=== PATIENT | male | born 1970 | race Asian ===

== ENCOUNTER 2016-09-15 10:19 | Emergency (ER) | payer SELFPAY ==
[~2016-09-15] VITALS: Ht 175.3 cm; Wt 117.9 kg
[2016-09-15 10:47] VITALS: BP 119/78
[2016-09-15 10:47] LABS: BASOPHILS % (AUTO) 1.6 % (0.0-2.0); EOSINOPHILS % (AUTO) 4.3 % (0.0-3.0); MEAN CORPUSCULAR HEMOGLOBIN 29.5 PG (27.0-31.0); MEAN CORPUSCULAR HGB CONC 32.6 G/DL (32.0-36.0); MEAN CORPUSCULAR VOLUME 90 FL (80-99); MEAN PLATELET VOLUME 6.2 FL (6.5-10.1); MONOCYTES % (AUTO) 5.8 % (1.0-10.0); NEUTROPHILS % (AUTO) 41.4 % (45.0-75.0); PLATELET COUNT 379 K/UL (150-450); RED BLOOD COUNT 5.74 M/UL (4.70-6.10); RED CELL DISTRIBUTION WIDTH 12.8 % (11.6-14.8); WHITE BLOOD COUNT 5.1 K/UL (4.8-10.8)
--- NOTE | 2016-09-15 10:50 | Emergency Room Report ---
History of Present Illness General Chief Complaint: General Complaint Source: Patient Present Illness HPI Patient present with an episode of acute shortness of breath This occurred this morning after eating breakfast Patient reports that he felt like he was having a heart attack [employer] weak Palpitations Denies any headache or visual changes Denies any chest pain at this time denies any back or flank pain Patient has been on multiple supplements He had borderline diabetes which is controlled with his diet Denies any recent travel denies any pleurisy Allergies: Coded Allergies: No Known Allergies (Unverified , 09/15/16) Patient History Past Medical History: see triage record Pertinent Family History: none Reviewed Nursing Documentation: PMH: Agreed, PSxH: Agreed Nursing Documentation-PMH Past Medical History: No Stated History Review of Systems All Other Systems: negative except mentioned in HPI Physical Exam Vital Signs Date Time Temp Pulse Resp B/P Pulse Ox O2 Delivery O2 Flow Rate FiO2 09/15/16 10:27 98.1 106 16 125/70 98 Room Air 09/15/16 10:47 2.0 Sp02 EP Interpretation: reviewed, normal General Appearance: well appearing, no apparent distress Head: normocephalic, atraumatic Eyes: bilateral eye EOMI, bilateral eye PERRL ENT: hearing grossly normal, normal pharynx, TMs + canals normal, uvula midline Neck: full range of motion, supple, no meningismus, no bony tend Respiratory: lungs clear, normal breath sounds, no rhonchi, no respiratory distress, no retraction, no accessory muscle use Cardiovascular #1: normal peripheral pulses, regular rate, rhythm, no edema, no gallop, no JVD, no murmur Gastrointestinal: normal bowel sounds, non tender, soft, no mass, no organomegaly, non-distended, no guarding, no hernia, no pulsatile mass, no rebound Genitourinary: no CVA tenderness Musculoskeletal: normal inspection Neurologic: oriented x3, responsive, 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, motor strength/ tone normal, sensory intact Psychiatric: mood/affect normal Skin: normal color, no rash, warm/dry, palpation normal Lymphatic: normal inspection, no adenopathy Medical Decision Making Diagnostic Impression: Primary Impression: Palpitations Additional Impressions: Weakness Chest pain ER Course Patient is a fairly complex patient with multiple differential to consideration including but not limited to cardiac cardiopulmonary and vascular emergencies Patient's EKG and blood work are appropriate EKG was repeated again which was normal patient remains asymptomatic at this time and is stable for close outpatient followup Labs Test 09/15/16 10:35 09/15/16 11:11 White Blood Count 5.1 K/UL (4.8-10.8) Red Blood Count 5.74 M/UL (4.70-6.10) Hemoglobin 17.0 G/DL (14.2-18.0) Hematocrit 51.9 % (42.0-52.0) Mean Corpuscular Volume 90 FL (80-99) Mean Corpuscular Hemoglobin 29.5 PG (27.0-31.0) Mean Corpuscular Hemoglobin Concent 32.6 G/DL (32.0-36.0) Red Cell Distribution Width 12.8 % (11.6-14.8) Platelet Count 379 K/UL (150-450) Mean Platelet Volume 6.2 FL (6.5-10.1) Neutrophils (%) (Auto) 41.4 % (45.0-75.0) Lymphocytes (%) (Auto) 47.0 % (20.0-45.0) Monocytes (%) (Auto) 5.8 % (1.0-10.0) Eosinophils (%) (Auto) 4.3 % (0.0-3.0) Basophils (%) (Auto) 1.6 % (0.0-2.0) Sodium Level 139 mEQ/L (135-145) Potassium Level 3.4 mEQ/L (3.4-4.9) Chloride Level 98 mEQ/L (98-107) Carbon Dioxide Level 26 mEQ/L (20-30) Anion Gap 15 (5-15) Blood Urea Nitrogen 15 mg/dL (7-23) Creatinine 0.9 mg/dL (0.7-1.2) Estimat Glomerular Filtration Rate > 60 mL/min (>60) Glucose Level 151 mg/dL (74-106) Calcium Level 9.3 mg/dL (8.6-10.2) Total Bilirubin 0.5 mg/dL (0.0-1.2) Aspartate Amino Transf (AST/SGOT) 17 U/L (5-40) Alanine Aminotransferase (ALT/SGPT) 27 U/L (3-41) Alkaline Phosphatase 47 U/L (40-129) Total Creatine Kinase 254 U/L (38-174) Creatine Kinase MB 3.0 ng/mL (< 6.7) Creatine Kinase MB Relative Index 1.1 Troponin I < 0.30 ng/mL (<=0.30) Total Protein 7.0 g/dL (6.6-8.7) Albumin 4.4 g/dL (3.5-5.2) Globulin 2.6 g/dL Albumin/Globulin Ratio 1.6 (1.0-2.7) Lipase 26 U/L (< 60) Urine Opiates Screen Negative (NEGATIVE) Urine Barbiturates Screen Negative (NEGATIVE) Phencyclidine (PCP) Screen Negative (NEGATIVE) Urine Amphetamines Screen Negative (NEGATIVE) Urine Benzodiazepines Screen Negative (NEGATIVE) Urine Cocaine Screen Negative (NEGATIVE) Urine Marijuana (THC) Screen Negative (NEGATIVE) EKG Diagnostic Results Rate: normal Rhythm: NSR ST Segments: no acute changes Rhythm Strip Diag. Results EP Interpretation: yes Rate: 66 Rhythm: NSR, no PVC's, no ectopy Chest X-Ray Diagnostic Results EP Interpretation: Yes Findings: no consolidation, no effusion, no pneumothorax Number of Views: 1 Last Vital Signs Date Time Temp Pulse Resp B/P Pulse Ox O2 Delivery O2 Flow Rate FiO2 09/15/16 10:47 97.6 95 17 119/78 97 Nasal Cannula 2.0 Status: improved Disposition: HOME, SELF-CARE Condition: Improved Additional Instructions: Patient is provided with the discharge instructions notified to follow up with primary doctor in the next 2-3 days otherwise return to the er with any worsening symptoms. Please note that this report is being documented using [employer] technology. This can lead to erroneous entry secondary to incorrect interpretation by the dictating instrument. MIRA SCHROEDER D.O. Sep 15, 2016 10:50
[2016-09-15 11:00] LABS: ALANINE AMINOTRANSFERASE 27 U/L (3-41); ALBUMIN/GLOBULIN RATIO 1.6 (1.0-2.7); ANION GAP 15 (5-15); ASPARTATE AMINO TRANSFERASE 17 U/L (5-40); CALCIUM 9.3 mg/dL (8.6-10.2); CARBON DIOXIDE 26 mEQ/L (20-30); CHLORIDE 98 mEQ/L (98-107); CREATININE 0.9 mg/dL (0.7-1.2); GLOMERULAR FILTRATION RATE > 60 mL/min (>60); HEMOLYSIS 22; LIPASE 26 U/L (< 60); POTASSIUM 3.4 mEQ/L (3.4-4.9); SODIUM 139 mEQ/L (135-145); TROPONIN I < 0.30 ng/mL (<=0.30)
[2016-09-15 12:41] VITALS: BP 106/62
[2016-09-15 13:06] VITALS: BP 106/62
--- NOTE | 2016-09-16 09:42 | Diagnostic Imaging Report ---
Indication: Chest pain Technique: Single portable AP view of the chest. Findings: Comparison: None. Right hemidiaphragm is elevated. Mild calcification of aortic arch. The bones and extra pulmonary soft tissues, cardiomediastinal silhouette, pulmonary vasculature and parenchyma, and pleural surfaces are otherwise unremarkable. IMPRESSION: Elevation of right hemidiaphragm, nonspecific, acuity indeterminate Aortosclerosis Otherwise negative portable AP chest.
== END 2016-09-15 13:06 | disposition home or self-care (01) ==
LOC: EMR 10:30
DX: R00.2 Palpitations (principal); R53.1 Weakness; R07.9 Chest pain, unspecified
CPT/HCPCS: 36415; 71010; 80053; 80300; 82550; 82553; 83690; 84484; 85025; 93005; 99284